=== PATIENT | female | born 1970 | race Caucasian/White ===

== ENCOUNTER 2017-11-28 16:28 | Emergency (ER) | payer SELFPAY ==
[~2017-11-28] VITALS: Ht 149.9 cm; Wt 70.0 kg
[2017-11-28 16:30] VITALS: BP 131/87; PULSE 119; RESP 16; TEMP 98.6; O2SAT 96
--- NOTE | 2017-11-28 17:05 | RADRPT ---
EXAM DATE/TIME: 11/28/2017 16:52 [place] COMPARISON: No previous studies available for comparison. INDICATIONS : Pain and swelling in right hand for 1 day after fall. MEDICAL HISTORY : None. SURGICAL HISTORY : None. ENCOUNTER: Initial ACUITY: 1 day PAIN SCORE: 8/10 LOCATION: Right hand. FINDINGS: AP, lateral and oblique views of the right hand were obtained and demonstrate a mildly comminuted non displaced fracture through the base of the fourth proximal phalanx. There is one fracture line extend s into the metacarpophalangeal joint. There is also a oblique fracture through the base of the fifth metacarpal which extends into the metacarpal carpal joints. There is soft tissue swelling over the do rsum of the hand and base of the fourth digit. The carpus appears intact. CONCLUSION: 1. Mildly comminuted nondisplaced fracture involving the base of the fourth proximal phalanx. 2. Oblique fracture through the base of the fifth metacarpal. Kevin Cortez MD on November 28, 2017 at 17:01 Board Certified Radiologist. This report was verified electronically.
[2017-11-28] MEDS ORDERED: NORC5TAB PO (17:16)
[2017-11-28] MEDS ORDERED: IBUP1TAB7 PO (17:16)
--- NOTE | 2017-11-28 17:18 | PD ---
HPI Chief Complaint: Injury Time Seen by Provider: 17:11 Travel History International Travel<30 days: No Contact w/Intl Traveler<30days: No Traveled to known affect area: No History of Present Illness HPI 47-year-old female presents to emergency Department with complaint of right hand pain and swelling since yesterday after tripping over an elevated piece of cement and falling. She denies hitting her head or loss of consciousness. Denies neck pain or back pain. Denies paresthesias, loss of sensation to the affected extremity. Has taken ibuprofen last night for her pain. Has not tried any other treatment. Rates pain 10/10. Describes it as a throbbing sensation. Constantly aggravated. No known relieving factors. Denies significant past medical history. No known allergies. Does not have a primary care provider. Has no other medical complaints. No other modifying factors or associated signs and symptoms. PFSH Past Medical History ?: Not LMP: END OF OCT 2017 Social History Tobacco Use: No Allergies-Medications (Allergen,Severity, Reaction): Coded Allergies: No Known Allergies (Unverified , 11/28/17) Reported Meds & Prescriptions Reported Meds & Active Scripts Active Ibuprofen 800 Mg Tab 800 Mg PO Q6HR PRN [place] (Hydrocodone-Acetaminophen) 5 Mg-325 Mg Tab 1 Tab PO Q4H PRN Review of Systems Except as stated in HPI: all other systems reviewed are Neg Physical Exam Narrative GENERAL: Well-nourished, well-developed female patient, in no acute distress SKIN: Warm and dry. HEAD: Atraumatic. Normocephalic. EYES: Pupils equal and round. No scleral icterus. No injection or drainage. ENT: Mucosa pink and moist. Airway patent. NECK: Trachea midline. CARDIOVASCULAR: Regular rate. RESPIRATORY: No accessory muscle use. GASTROINTESTINAL: Rounded. MUSCULOSKELETAL: Right hand and fingers are edematous; no obvious deformity; with tenderness on palpation; all fingers are pink and warm and with sensory intact medical 2+ radial pulse. No obvious deformities. No clubbing. No cyanosis. NEUROLOGICAL: Awake and alert. Oriented 3. No obvious cranial nerve deficits. Motor grossly within normal limits. Normal speech. PSYCHIATRIC: Appropriate mood and affect; insight and judgment normal. Data Data Last Documented VS Vital Signs Date Time Temp Pulse Resp B/P (MAP) Pulse Ox O2 Delivery O2 Flow Rate FiO2 11/28/17 16:30 98.6 119 16 131/87 (102) 96 Room Air Orders Orders Hand, Complete ([id number]) (11/28/17 ) Sling Cradle Arm (11/28/17 ) Ed Discharge Order (11/28/17 17:18) Acetamin-Hydrocod 325-5 Mg ([place] 5-325 (11/28/17 17:30) Sling Cradle Arm (11/28/17 ) Mandatory Outpatient Referral (11/28/17 17:31) [facility] Medical Decision Making Medical Screen Exam Complete: Yes Emergency Medical Condition: Yes Medical Record Reviewed: Yes Differential Diagnosis Fracture, sprain, injury Narrative Course 47-year-old female with right hand injury after mechanical trip and fall. Right hand x-ray ordered in the ER. 1717: Right hand x-ray concludes: Hand X-Ray 11/28/17 0000 Signed Impressions: Service Date/Time: Tuesday, November 28, 2017 16:52 - CONCLUSION: 1. Mildly comminuted nondisplaced fracture involving the base of the fourth proximal phalanx. 2. Oblique fracture through the base of the fifth metacarpal. Kevin Cortez MD Patient provided a copy of the x-ray report. Ulnar gutter Splint and arm sling ordered. Ibuprofen and [place] prescribed for home. Instructed patient to follow up with hand surgeon. A mandatory outpatient referral was ordered as the patient does not have insurance for follow-up. Instructed patient to follow up with primary care provider. Patient verbalizes understanding and agreement with treatment plan. Patient is medically cleared and stable for discharge. Discussed reasons to return to the emergency department. Patient agrees with treatment plan. The patients vital signs are stable and the patient is stable for outpatient follow-up and treatment. Patient discharged home, stable and in no acute distress. Diagnosis Primary Impression: Hand fracture, right Qualified Codes: S62.91XA - Unspecified fracture of right wrist and hand, initial encounter for closed fracture Additional Impression: Finger fracture, right Qualified Codes: S62.644A - Nondisplaced fracture of proximal phalanx of right ring finger, initial encounter for closed fracture Referrals: Luis Gonsalves III, MD Hand Surgeon Primary Care Physician Patient Instructions: Fall Prevention (ED), Finger Fracture (ED), General Instructions, Hand Fracture (ED) Additional Instructions: Tylenol or ibuprofen as directed and as needed to reduce pain Rest, ice, compress, and elevate extremity to decrease pain and inflammation [place] wrap for support Splint for support; do not remove the splint until he follow-up with the hand surgeon Avoid aggravating activity; increase activity as tolerated Follow-up with primary care provider Follow-up with hand surgeon; you have been provided with Dr. Gonsalves's information , he is a hand surgeon affiliated with [facility]; or he may follow up with any hand surgeon of her choice Return to the emergency department immediately with worsening symptoms Med/Other Pt SpecificInfo: Prescription(s) given Scripts Ibuprofen (Ibuprofen) 800 Mg Tab 800 MG PO Q6HR Y for PAIN, #30 TAB 0 Refills Prov: Nicky Garrett 11/28/17 Hydrocodone-Acetaminophen ([place]) 5 Mg-325 Mg Tab 1 TAB PO Q4H Y for PAIN, #18 TAB 0 Refills Prov: Nicky Garrett 11/28/17 Disposition: 01 DISCHARGE HOME Condition: Stable Nicky Garrett Nov 28, 2017 17:18
[2017-11-28] MEDS ORDERED: ACETAMINOPHEN/HYDROcodone 325 MG/5 MG TAB PO ONE (17:30)
[2017-12-08] MEDS ORDERED: SYMB80AE INH (09:43)
[2017-12-08] MEDS ORDERED: ALBUS PO (09:43)
== END 2017-11-28 18:02 | disposition home or self-care (01) ==
LOC: NEPK 16:28
DX: S62.644A Nondisplaced fracture of proximal phalanx of right ring finger, initial encounter for closed fracture (principal); S62.316A Displaced fracture of base of fifth metacarpal bone, right hand, initial encounter for closed fracture; W01.0XXA Fall on same level from slipping, tripping and stumbling without subsequent striking against object, initial encounter
CPT/HCPCS: 29125; 73130